=== PATIENT | female | born 1980 | race Caucasian/White ===

== ENCOUNTER 2022-07-05 21:13 | Inpatient (IN) | payer OTHER ==
[~2022-07-05] VITALS: Ht 170.2 cm; Wt 61.3 kg
[2022-07-06] VITALS (7 sets, daily range): BP systolic 108–151; BP diastolic 78–101
--- NOTE | 2022-07-06 01:29 | NUR ---
ADMISSION PATIENT ARRIVES TO PCU AROUND 0040. PATIENT SLID OVER BY PCU STAFF AND EMS. PATIENT ABLE TO ANSWER QUESTIONS BT IS SLOW TO RESPOND AND WILL FALL ASLEEP MID CONVERSATION. VITALS STABLE, PATIENT ON RA WITH O2 SAT >90%. PATIENT ABLE TO STAND PIVOT TO BEDSIDE COMMODE, VOIDED 500mls. DR. MC AT BEDSIDE FOR ADMISSION. BED IN LOW POSITION, CALL LIGHT IN REACH.
[2022-07-06 02:58] LABS: BASOPHILS ABSOLUTE AUTO 0.04 K/mm3 (0.00-0.23); BASOPHILS PERCENT AUTO 1 % (0-2); EOSINOPHILS ABSOLUTE AUTO 0.01 K/mm3 (0.00-0.68); EOSINOPHILS PERCENT AUTO 0 % (0-6); Hemoglobin 13.1 g/dL (11.5-16.0); IMMATURE GRAN ABSOLUTE AUTO 0.02 K/mm3 (0.00-0.10); IMMATURE GRAN PERCENT AUTO 0 % (0-1); LYMPHOCYTES ABSOLUTE AUTO 1.02 K/mm3 (0.84-5.20); LYMPHOCYTES PERCENT AUTO 15 % (21-46); MONOCYTES ABSOLUTE AUTO 0.65 K/mm3 (0.16-1.47); MONOCYTES PERCENT AUTO 9 % (4-13); Mean Corpuscular HGB 39.1 pg (26.0-34.0); Mean Corpuscular HGB Conc 35.4 g/dL (31.5-36.5); Mean Corpuscular Volume 110 fL (80-100); Mean Platelet Volume 10.9 fL (9.1-12.4); NEUTROPHILS ABSOLUTE AUTO 5.23 K/mm3 (1.96-9.15); NEUTROPHILS PERCENT AUTO 75 % (41-73); Platelet Count 111 K/mm3 (150-400); RDW Coefficient Variation 14.9 % (11.7-14.2); RDW Standard Deviation 61.2 fL (35.1-46.3); Red Blood Cell Count 3.35 M/mm3 (3.80-5.20); White Blood Cell Count 6.97 K/mm3 (4.00-11.30)
[2022-07-06 03:14] LABS: Albumin, Blood 3.3 g/dL (3.4-5.0); Albumin/Globulin Ratio 1.1 (0.8-1.8); Bilirubin, Total 2.2 mg/dL (0.1-1.0); Bun/Creatinine Ratio 16.7 (12.0-20.0); Calcium, Blood 7.4 mg/dL (8.5-10.1); Creatinine, Blood 0.3 mg/dL (0.40-1.00); Globulin, Blood 3.1 g/dL (2.2-4.0); Magnesium, Blood 1.5 mg/dL (1.6-2.4); Potassium, Blood 4.3 mmol/L (3.5-5.5); Total Protein, Blood 6.4 g/dL (6.4-8.2)
--- NOTE | 2022-07-06 06:38 | NUR ---
SHIFT SUMMARY PATIENT ALERT, ORIENTED x3-4, SLEPT FOR MAJORITY OF TIME SINCE ADMISSION. PATIENT WOULD WAKE UP FOR SHORT PERIODS OF TIME BUT EASILY FALLS BACK ASLEEP. VITALS STABLE, PATIENT ON RA WITH O2 SAT >90%. CIWA NEGATIVE THUS FAR. PATIENT TOLERATING ICE CHIPS. ONE PERSON ASSIST TO BEDSIDE COMMODE WITH ADEQUATE OUTPUT. POWERGLIDE PLACED. PROTONIX, SANDOSTATIN AND D5 1/2 NS INFUSING PER EMAR. NO OTHER CHANGES, WILL REPORT TO DAY SHIFT RN.
[2022-07-06 08:24] LABS: Hemoglobin 14.1 g/dL (11.5-16.0)
[2022-07-06 08:38] LABS: International Normalized Ratio 1.06; Prothrombin Time Results 11.1 Sec (9.7-11.5)
--- NOTE | 2022-07-06 11:09 | NUR ---
PT BROUGHT FROM FLOOR TO DAY SURGERY FOR PROCEDURE.
--- NOTE | 2022-07-06 11:17 | NUR ---
PT HAS 18G IV IN RIGHT AC THAT FLUSHES WELL AND FLOWS TO GRAVITY.
--- NOTE | 2022-07-06 11:20 | NUR ---
PT HAS POWERGLIDE TO LEFT UPPER ARM THAT FLUSHES WELL AND FLOWS TO GRAVITY.
--- NOTE | 2022-07-06 11:58 | NUR ---
07/06/[address] ALAMO; SEE ANESTHESIA RECORDS.
[2022-07-06 15:12] LABS: Hematocrit 39.6 % (33.0-51.0)
--- NOTE | 2022-07-06 18:10 | NUR ---
SHIFT SUMMARY: PT SLEEPS OFTEN, AROUSES EASILY TO STAFF IN ROOM, ORIENTED TO SELF, LOCATION, SITUATION, UNCERTAIN OF DATE. PT ADMITS TO DAILY ALCOHOL CONSUMPTION, STATES SHE HAS GONE THROUGH WITHDRAWAL BEFORE AND IS FAMILIAR W/SYMPTOMS. CONVERSATION HAD BETWEEN THIS RN AND PT TO REVIEW SYMPTOMS OF WITHDRAWAL AND PLAN OF TREATMENT IF CIWA SCORES REVEAL NEED FOR TREATMENT, NO TREATMENT FOR WITHDRAWAL THIS SHIFT. O2 SATS >93% ON RA. SR ON MONITOR, RATE 70s-80s. ABDOMEN TENDER TO TOUCH AND PAINFUL ACROSS UPPER ABDOMEN, PT MEDICATED PER EMAR. EGD COMPLETED THIS SHIFT, SEE PROVIDER NOTE FOR DETAILS. FULL LIQUID DIET STARTED, TO BE ADVANCED TOLERATED. NO EMESIS THIS SHIFT. NO BM THIS SHIFT. PT UP TO BSC W/ONE PERSON ASSIST AND FWW, TOLERATES WELL. AT THIS TIME, PT RESTING IN ROOM W/DINNER TRAY. WILL CONTINUE TO MONITOR AND TREAT ACCORDINGLY UNTIL CHANGE OF SHIFT.
[2022-07-06 21:50] LABS: Hematocrit 40.3 % (33.0-51.0); Hemoglobin 14.8 g/dL (11.5-16.0)
[2022-07-07 00:28] VITALS: BP 140/96
[2022-07-07 03:26] VITALS: BP 128/88
[2022-07-07 04:01] LABS: BASOPHILS ABSOLUTE AUTO 0.04 K/mm3 (0.00-0.23); BASOPHILS PERCENT AUTO 1 % (0-2); EOSINOPHILS ABSOLUTE AUTO 0.05 K/mm3 (0.00-0.68); EOSINOPHILS PERCENT AUTO 1 % (0-6); Hematocrit 41.1 % (33.0-51.0); Hemoglobin 15.3 g/dL (11.5-16.0); IMMATURE GRAN ABSOLUTE AUTO 0.01 K/mm3 (0.00-0.10); IMMATURE GRAN PERCENT AUTO 0 % (0-1); LYMPHOCYTES ABSOLUTE AUTO 0.96 K/mm3 (0.84-5.20); LYMPHOCYTES PERCENT AUTO 14 % (21-46); MONOCYTES ABSOLUTE AUTO 0.53 K/mm3 (0.16-1.47); MONOCYTES PERCENT AUTO 8 % (4-13); Mean Corpuscular HGB 38.9 pg (26.0-34.0); Mean Corpuscular HGB Conc 37.2 g/dL (31.5-36.5); Mean Platelet Volume 10.3 fL (9.1-12.4); NEUTROPHILS ABSOLUTE AUTO 5.17 K/mm3 (1.96-9.15); NEUTROPHILS PERCENT AUTO 77 % (41-73); Platelet Count 94 K/mm3 (150-400); RDW Coefficient Variation 13.7 % (11.7-14.2); RDW Standard Deviation 53.2 fL (35.1-46.3); Red Blood Cell Count 3.93 M/mm3 (3.80-5.20); White Blood Cell Count 6.76 K/mm3 (4.00-11.30)
[2022-07-07 04:05] LABS: Mean Corpuscular Volume 105 fL (80-100)
[2022-07-07 04:25] LABS: Magnesium, Blood 2.1 mg/dL (1.6-2.4)
[2022-07-07 04:37] LABS: Albumin, Blood 3.3 g/dL (3.4-5.0); Anion Gap 9 mmol/L (6-16); Blood Urea Nitrogen 2 mg/dL (8-24); Bun/Creatinine Ratio 6.5 (12.0-20.0); CO2, Blood 22 mmol/L (21-32); Calcium, Blood 8.2 mg/dL (8.5-10.1); Chloride, Blood 102 mmol/L (98-108); Creatinine, Blood 0.31 mg/dL (0.40-1.00); Glomerular Filtration Rate 133 (60-); Glucose, Blood 138 mg/dL (70-99); Phosphorus, Blood 0.4 mg/dL (2.5-4.9); Potassium, Blood 3.1 mmol/L (3.5-5.5); Sodium, Blood 133 mmol/L (136-145)
--- NOTE | 2022-07-07 06:29 | NUR ---
SHIFT SUMMARY PT A&Ox4, CALLS AND COMMUNICATES NEEDS APPROPRIATELY. CIWAs 16-18, MANANGED PER EMAR. BP STABLE, SINUS 80's. DENIES CP/PRESSURE. SPO2> 92% RA, DENIES SOB. PT CONTINENT OF URINE, 1 PER ASSIST TO BSC. NO BM THIS SHIFT. ASSISTED PT WITH BEDBATH, PROVIDED LINEN CHANGE. NO OTHER EVENTS, WILL REPORT TO ONCOMING RN.
[2022-07-07 07:47] VITALS: BP 122/90
[2022-07-07 11:18] VITALS: BP 117/81
[2022-07-07 15:57] VITALS: BP 113/86
--- NOTE | 2022-07-07 17:50 | NUR ---
REPORT RECIEVED AT BEDSIDE AND PATIENT GREETED. ASSESSMENT AND MEDICATIONS GIVEN. A CIWA WAS PREFORMED AND THE PATIENT SEEMED TO BE VERY LETHARGIC. PATIENT IS NORMALY ASLEEP DURING NORMAL HOURLY ROUNDING AND AWAKENS EASILY TO STIMULATION. THE PATIENT IS EATING A THIN LIQUID DIET WITH LITTLE COMPLICATION.
[2022-07-07 18:04] LABS: Albumin, Blood 3.1 g/dL (3.4-5.0); Anion Gap 6 mmol/L (6-16); Blood Urea Nitrogen 2 mg/dL (8-24); Bun/Creatinine Ratio 5.8 (12.0-20.0); CO2, Blood 25 mmol/L (21-32); Calcium, Blood 8.1 mg/dL (8.5-10.1); Chloride, Blood 103 mmol/L (98-108); Creatinine, Blood 0.35 mg/dL (0.40-1.00); Glomerular Filtration Rate 129 (60-); Glucose, Blood 127 mg/dL (70-99); Phosphorus, Blood 1.7 mg/dL (2.5-4.9); Potassium, Blood 2.8 mmol/L (3.5-5.5); Sodium, Blood 134 mmol/L (136-145)
--- NOTE | 2022-07-07 18:31 | NUR ---
UPDATE: PROVIDER NOTIFIED VIA TELEPHONE RE: PT LAB RESULTS. NEW ORDERS GIVEN VIA TELEPHONE AND PLACED.
[2022-07-07 20:14] VITALS: BP 111/79
[2022-07-08] VITALS (10 sets, daily range): BP systolic 92–115; BP diastolic 63–82
[2022-07-08 04:03] LABS: BASOPHILS ABSOLUTE AUTO 0.05 K/mm3 (0.00-0.23); BASOPHILS PERCENT AUTO 1 % (0-2); EOSINOPHILS ABSOLUTE AUTO 0.06 K/mm3 (0.00-0.68); EOSINOPHILS PERCENT AUTO 1 % (0-6); Hematocrit 36.8 % (33.0-51.0); Hemoglobin 13.7 g/dL (11.5-16.0); IMMATURE GRAN ABSOLUTE AUTO 0.02 K/mm3 (0.00-0.10); IMMATURE GRAN PERCENT AUTO 0 % (0-1); LYMPHOCYTES ABSOLUTE AUTO 1.45 K/mm3 (0.84-5.20); LYMPHOCYTES PERCENT AUTO 30 % (21-46); MONOCYTES ABSOLUTE AUTO 0.39 K/mm3 (0.16-1.47); MONOCYTES PERCENT AUTO 8 % (4-13); Mean Corpuscular HGB 38.9 pg (26.0-34.0); Mean Corpuscular HGB Conc 37.2 g/dL (31.5-36.5); Mean Corpuscular Volume 105 fL (80-100); NEUTROPHILS ABSOLUTE AUTO 2.92 K/mm3 (1.96-9.15); NEUTROPHILS PERCENT AUTO 60 % (41-73); Platelet Count 72 K/mm3 (150-400); RDW Coefficient Variation 14.3 % (11.7-14.2); RDW Standard Deviation 54.8 fL (35.1-46.3); Red Blood Cell Count 3.52 M/mm3 (3.80-5.20); White Blood Cell Count 4.89 K/mm3 (4.00-11.30)
[2022-07-08 04:21] LABS: Albumin, Blood 2.9 g/dL (3.4-5.0); Bilirubin, Total 1.5 mg/dL (0.1-1.0); Bun/Creatinine Ratio 12.2 (12.0-20.0); Creatinine, Blood 0.33 mg/dL (0.40-1.00); Magnesium, Blood 1.6 mg/dL (1.6-2.4); Phosphorus, Blood 1.6 mg/dL (2.5-4.9); Potassium, Blood 2.9 mmol/L (3.5-5.5); Total Protein, Blood 5.9 g/dL (6.4-8.2)
--- NOTE | 2022-07-08 05:52 | NUR ---
SHIFT SUMMARY PT A&Ox4, CALLS AND COMMUNICATES NEEDS APPROPRIATELY. CIWAs 11-17, MANANGED PER EMAR. BP STABLE, SINUS 80's. DENIES CP/PRESSURE. SPO2> 92% RA, DENIES SOB. PT CONTINENT OF URINE, 1 PER ASSIST TO BSC. NO BM THIS SHIFT. NOTIFIED PHYSICIAN OF MORNING LABS, ORDERS PLACED. NO OTHER EVENTS, WILL REPORT TO ONCOMING RN.
--- NOTE | 2022-07-08 10:13 | NUR ---
ASSUMED CARE: ASSUMED CARE OF PT APPROX 0715. PT LETHARGIC IN BED. ABLE TO COMMUNICATE NEEDS APPROPRIATELY. APPEARED ANXIOUS AND TEARFUL WITH ASSESSMENT. AM CIWA 25. MANAGED WITH ATIVAN AND LIBRIUM PER EMAR. BP STABLE. NSR 80's. SPO2 >92% ON RA. PT WITH 2P SBA TO BSC. ABLE TO VOID IN COMMODE. ABLE TO TAKE PO MEDICANTIONS PER EMAR WITH APPLESAUCE. NO FURTHER NEEDS AT THIS TIME. CALL LIGHT WITHIN REACH.
[2022-07-08 12:59] LABS: Anion Gap 3 mmol/L (6-16); Blood Urea Nitrogen 2 mg/dL (8-24); Bun/Creatinine Ratio 6.2 (12.0-20.0); CO2, Blood 28 mmol/L (21-32); Calcium, Blood 8.3 mg/dL (8.5-10.1); Chloride, Blood 104 mmol/L (98-108); Creatinine, Blood 0.32 mg/dL (0.40-1.00); Glomerular Filtration Rate 132 (60-); Glucose, Blood 94 mg/dL (70-99); Magnesium, Blood 2.9 mg/dL (1.6-2.4); Phosphorus, Blood 2.7 mg/dL (2.5-4.9); Potassium, Blood 3.5 mmol/L (3.5-5.5); Sodium, Blood 135 mmol/L (136-145)
--- NOTE | 2022-07-08 17:52 | NUR ---
SHIFT SUMMARY: PT A&OX3, UNSURE OF DATE/TIME. PT ABLE TO COMMUNICATE NEEDS APPROPRIATELY. CIWAS 9-25, MANAGED WITH ATIVAN AND LIBRIUM PER EMAR. SBP 90'S-100'S. HR 80'S-90'S, NSR. PT DENIES CP/PRESSURE. SPO2 >95% ON RA. PT DENIES SOB. PT REPORTS PAIN IN UPPER ABDOMEN BUT REPORTS IMPROVEMENT WITH CLEAR LIQUID DIET. PT 3P SBA TO COMMODE, TRANSITIONED TO BEDPAN DUE TO PT WEAKNESS. PT ABLE TO VOID YELLOW URINE. NO BM'S THIS SHIFT. POWERGLIDE IN LEFT UPPER ARM, SALINE LOCKED. REPOSITIONED FREQUENTLY WITH ASSISTANCE. SEIZURE PRECAUTIONS IN PLACE. CALL LIGHT WITHIN REACH. NO FURTHER NEEDS AT THIS TIME.
--- NOTE | 2022-07-08 20:27 | NUR ---
PATIENT AWAKE AND TEARFUL, SLIGHT TREMOR SEEN, CONTINUES TO C/O MARTINEZ SLIGHT RELIEF WITH TYLENOL GIVEN BY DAYSHIFT. SPEAKING IN WHISPER AND DIFFICULT TO UNDERSTAND AT TIMES. A&O BUT SLIGHT FORGETFUL. POOR COORDINATION AND GENERALIZED WEAKNESS. ATIVAN GIVEN FOR CIWA 18. LIBRIUM AT MAX DOSE FOR THE DAY.
[2022-07-09 04:05] LABS: Albumin, Blood 2.9 g/dL (3.4-5.0); Anion Gap 5 mmol/L (6-16); Blood Urea Nitrogen 4 mg/dL (8-24); Bun/Creatinine Ratio 13.2 (12.0-20.0); CO2, Blood 27 mmol/L (21-32); Calcium, Blood 8.3 mg/dL (8.5-10.1); Chloride, Blood 104 mmol/L (98-108); Glomerular Filtration Rate 134 (60-); Glucose, Blood 91 mg/dL (70-99); Magnesium, Blood 2.1 mg/dL (1.6-2.4); Phosphorus, Blood 2.5 mg/dL (2.5-4.9); Potassium, Blood 3.4 mmol/L (3.5-5.5); Sodium, Blood 136 mmol/L (136-145)
[2022-07-09 04:30] VITALS: BP 94/65
--- NOTE | 2022-07-09 06:23 | NUR ---
SUMMARY PATIENT SLEEPING OFF AND ON T/O NIGHT. WHEN AWAKE SHAKY AND SLIGHTLY FORGETFUL, NEEDING FREQUENT REMINDERS REGARDING PURWIK. MEDICATED WITH ATIVAN 1MG T/O NIGHT PER EMAR. LIBRIUM 25 MG PO GIVEN THIS MORNING. CIWA 5-18 T/O NIGHT.
[2022-07-09 07:27] VITALS: BP 102/74
--- NOTE | 2022-07-09 08:28 | NUR ---
AM NOTE Pt appears to be sleeping, wakes to verbal/tactile stimuli, quickly falling back asleep, not answering questions. Minimal tremors noted, minimaly diaphoretic, ciwa 5 this am. Spo2 >90% on ra, breathing even and unlabored. Tele sinus 80's. bp stable. Abd soft, tender to the llq. No s/sx of distress noted. Other vss. No other acute changes noted, will continue to monitor.
--- NOTE | 2022-07-09 14:00 | NUR ---
PT TRANSFERRED TO ROOM 351 FROM PCU IN BED. TEARFUL ON ARRIVAL. SETTLED IN TO ROOM AND ORIENTED TO CALL BUTTON.
[2022-07-09 15:35] VITALS: BP 108/71
--- NOTE | 2022-07-09 18:40 | NUR ---
SHIFT SUMMARY UP TO RECLINER FOR DINNER WITH 2 PERSON ASSISTU USING FWW. CIWA 6 AND STATED ANY HALLUCINATIONS SHE HAD EARLIER WERE GONE. STILL WITH TEARFUL MOMENTS.
[2022-07-10 07:12] VITALS: BP 104/67
--- NOTE | 2022-07-10 10:00 | NUR ---
PT YELLING AND CURSING WHILE IN BED WITH LOCKED RESTRAINTS ON. SPOKE WITH PT ABOUT HER WISHES AND SHE SAID SHE WANTED THE RESTRAINTS OFF AND TO GO HOME. ASKED ORIENTATION QUESTIONS AND PT ABLE TO SAY SHE WAS IN A HOSPITAL BUT NOT WHERE. WANTS TO GO HOME TO HER KIDS-PETS. REMINDED HER THAT HER BOYFRIEND IS STAYING WITH HER PETS AND KEEPING THEM TAKEN CARE OF. RESTRAINTS REMOVED AND PT IMMEDIATELY SAT ON SIDE OF BED SAYING SHE WAS GOING HOME AND SHE WOULD HITCH A RIDE. OFFERED SOMETHING FOR ANXIETY(WHICH SHE REPORTS SHE HAS) AND SHE REPLIED NOT IF SHE WAS LEAVING. CHANGED HER MIND AND TOOK A LIBRIUM. ASSISTED HER TO BATHROOM AND VERY UNSTEADY ON HER FEET USING A FWW WITH GAIT BELT. NEEDED CONSTAND CUING FOR SAFETY. MANAGED TO GET TO BATHROOM AND SAT ON TOILET. BRUSHED HER TEETH AND USED TOILET. MUCH CALMER AND REPORTED SHE FELT SCARED ABOUT TRYING TO WALK BY HERSELF AFTER ALMOST FALLING WHILE WALKING TO THE BATHROOM. NO FURTHER TALK ABOUT TRYING TO LEAVE AT THIS POINT.
[2022-07-10 16:16] VITALS: BP 118/75
--- NOTE | 2022-07-10 16:52 | NUR ---
SHIFT SUMMARY PT HAD BEEN CALM AND APPROPRIATE SINCE THIS MORNING. SLEPT FOR LENGTHY TIME LATE THIS MORNING INTO THIS AFTERNOON. CAN BE IMPULSIVE WHEN SHE WANTS TO GO TO BED AND DOESN'T CALL FOR HELP. CAMERA MONITERING PT FOR SAFETY AND CHAIR/BED ALARM ON WHEN IN EACH. FRIEND IN TO VISIT AND PT IN TEARS AFTER HE LEFT BUT SHE REPORTED IT WAS A GOOD VISIT. SPOKE WITH BROTHER, KEVIN, PHONE NUMBER [phone]. ATE SOME VANILLA PUDDING THIS AFTERNOON AND TOLERATED WELL. WILL ADVANCE TO A FULL LIQUID DIET AND MONITER TOLERATION. CAN BE TEARFUL AT TIMES.
[2022-07-10 20:47] VITALS: BP 100/66
[2022-07-11] VITALS (7 sets, daily range): BP systolic 101–115; BP diastolic 57–75
--- NOTE | 2022-07-11 05:39 | NUR ---
PT VERY WEAK AND UNABLE TO STAND OR REPOSITION IN BED ON OWN. 2 PERSON ASSIST FOR BSC. PT CONFUSED AT TIMES BUT STATES "I THINK IM DOING BETTER."
[2022-07-11 06:02] LABS: Bun/Creatinine Ratio 15.7 (12.0-20.0); Calcium, Blood 8.4 mg/dL (8.5-10.1); Creatinine, Blood 0.38 mg/dL (0.40-1.00); Potassium, Blood 3.9 mmol/L (3.5-5.5)
[2022-07-11 06:04] LABS: Hematocrit 36.2 % (33.0-51.0); Hemoglobin 13.5 g/dL (11.5-16.0); Mean Corpuscular HGB 39.4 pg (26.0-34.0); Mean Corpuscular HGB Conc 37.3 g/dL (31.5-36.5); Mean Corpuscular Volume 106 fL (80-100); Mean Platelet Volume 11.9 fL (9.1-12.4); Platelet Count 154 K/mm3 (150-400); RDW Coefficient Variation 14.2 % (11.7-14.2); RDW Standard Deviation 55.4 fL (35.1-46.3); Red Blood Cell Count 3.43 M/mm3 (3.80-5.20); White Blood Cell Count 6.43 K/mm3 (4.00-11.30)
[2022-07-11 07:04] LABS: BAND PERCENT MAN 14 % (0-8); BASOPHILS PERCENT MAN 0 % (0-2); EOSINOPHILS PERCENT MAN 0 % (0-6); LYMPHOCYTES ABSOLUTE MAN 0.38 K/mm3 (0.84-5.20); LYMPHOCYTES PERCENT MAN 6 % (21-46); MONOCYTES PERCENT MAN 14 % (4-13); NEUTROPHILS ABSOLUTE MAN 5.14 K/mm3 (1.96-9.15); SEG NEUTROPHILS PERCENT MAN 66 % (41-73); TOTAL CELLS COUNTED 100
--- NOTE | 2022-07-11 09:18 | NUR ---
CALL TO PATIENT TEMP OF 101.6 WITH AM VITALS, TYLENOL WAS GIVEN AT 0425, SO UNABLE TO GIVE MORE PER ORDERS. RECHECK AT THIS TIME IS 100.6. CALL TO DR RODRIGUEZ, STATED "I WILL BE UP THERE SHORTLY", NO NEW ORDERS GIVEN. PATIENT REMAINS VERY WEAK, ALERT & ORIENTED, SLOW TO RESPOND BUT APPROPRIATE WITH ANSWERS.
--- NOTE | 2022-07-11 10:05 | NUR ---
PATIENT VERY LETHARGIC AND FLACCID CURRENTLY. RESPIRATORY RATE APPEARED ELEVATED, UPON FURTHER VS ASSESSMENT, RESP RATE 34, TEMP REMAINS ELEVATED AT 100.5, BP 101/64, PULSE 101. DR ARREOLA VERBALLY NOTIFIED IN HALLWAY, STATED "I WILL GET TO HER SHORTLY, LET ME FINISH THIS UP", REGARDING ANOTHER PATIENT. THIS RN NOTIFIED IT APPLICATION SUPPORT ANALYSTDAVIDA WELSH REGARDING PATIENTS CONDITION. WILL CONTINUR TO MONITOR CLOSELY FOR FURTHER CHANGES.
--- NOTE | 2022-07-11 10:18 | NUR ---
AT BEDSIDE DR RODRIGUEZ AT BEDSIDE. STATES PATIENT "DEFINETLY HAS NEUROLOGICAL CHANGE SINCE YESTERDAY", ALSO STATED "I DONT THINK SHE IS SPETIC", PLANS TO ORDER SPINAL TAP FOR FURTHER R/O DIAGNOSIS. THIS RN WILL CONTINUE TO MONITOR CLOSELY AND NOTIFY FOR FURTHER CHANGES IN PATIENT STATUS.
--- NOTE | 2022-07-11 12:16 | NUR ---
RESPIRATIONS THIS RN RECHECKED RESPIRATIONS AFTER POSTAGE MACHINE OPERATOR DID FULL SET OF VITALS. RESPIRTAIONS ARE 36 AT THIS TIME - THIS RN BELIEVES RESP TO BE INACCURATELY RECORDED AT THIS TIME.
[2022-07-11 17:14] LABS: Appearance, CSF Clear (Clear); Color, CSF No Color (No Color); RBC Count, CSF 6 /mm3 (0-0); WBC Count, CSF 0 /mm3 (0-5)
[2022-07-11 18:08] LABS: Cryptococcus Neoformans/Gattii Not Detected (NOT DETECT); Enterovirus Not Detected (NOT DETECT); Escherichia Coli K1 Not Detected (NOT DETECT); Haemophilus Influenza Not Detected (NOT DETECT); Herpes Simplex Virus 1 Not Detected (NOT DETECT); Herpes Simplex Virus 2 Not Detected (NOT DETECT); Human Herpesvirus 6 Not Detected (NOT DETECT); Human Parechovirus Not Detected (NOT DETECT); Listeria Monocytogenes Not Detected (NOT DETECT); Neisseria Meningitidis Not Detected (NOT DETECT); Streptococcus Agalactiae Not Detected (NOT DETECT); Streptococcus Pneumoniae Not Detected (NOT DETECT); Varicella Zoster Virus Not Detected (NOT DETECT)
--- NOTE | 2022-07-11 18:50 | NUR ---
SHIFT SUMMARY PATIENT LETHARGIC AN FLACCID THIS AM, TESTING ORDERED BY PROVIDER PER CHART TO R/O MULTIPLE THINGS. PATIENT BECAME BETTER SHIFT WENT ON, MORE ALERT & RESPONSIVE, ANSWERING QUESTIONS APPROPRIATELY. TEMP REMAINS ELEVATE, TYLENOL ADMINISTERED. TOLERATING SOME FULL LIQUIDS. CONTINUOUS DIARRHEA T/O SHIFT. ATTENDS CHANGED PRN. IV ABX PER EMAR. BED IN LOW POSITION, REPORT GIVEN TO ONCOMING RN.
[2022-07-12 02:12] VITALS: BP 92/62
--- NOTE | 2022-07-12 06:21 | NUR ---
PT MORE AWAKE NIGHT PROGRESSED. CONTINUES TO BE VERY WEAK AND UNABLE TO GOT OOB FOR BSC, BEDPAN WHEN PT CALLS FOR BATHROOM. MULTIPLE WATERY STOOLS, NO BLOOD NOTED. TEARFUL AT TIMES.
[2022-07-12 06:59] VITALS: BP 89/56
[2022-07-12 13:52] LABS: Vancomycin, Trough 4.3 ug/mL (5.0-10.0)
[2022-07-12 15:07] VITALS: BP 102/63
--- NOTE | 2022-07-12 17:07 | NUR ---
SHIFT SUMMARY: PATIENT ALERT AND ORIENTED TO SELF AND PLACE ONLY. SLIGHTLY LETHARGIC AND SLOW TO RESPOND T/O SHIFT. DENIES CP/PRESSURE, SOB, N/V, AND GENERALIZED PAIN. PATIENT WORK c PT MOBILITY AND SITTING IN THE RECLINER FOR ABOUT 3 HRS THIS SHIFT. RECEIVED SCHEDULED MEDS PER EMAR. VITAL SIGNS REVIEWED. INCONTINENCE OF URINE AND STOOL. PATIENT HAD 3 LIQUID LARGE BROWN BM THIS SHIFT. POWER GLIDE TO MACEY INFUSING KVO. BED ALARM ON FOR SAFETY. CALL LIGHT IN REACH.
[2022-07-13] VITALS (8 sets, daily range): BP systolic 87–102; BP diastolic 56–67
--- NOTE | 2022-07-13 03:42 | NUR ---
SHIFT SUMMARY PT AOX2, ANSWER QUESTIONS BUT SOMETIMES TRAILS OFF INTO OTHER STORIES UNRELATED TO THE QUESTION. SHE CAN BE TEARFUL AT TIMES ESPECIALLY WHEN DISCUSSING HER PETS. SHE DID MENTION SHE WANTED TO LEAVE A COUPLE TIMES, STATING SHE WOULD GET IN HER SCOOTER AND ROLL OUT. SHE DID C/O PAIN, NAUSEA, AND ANXIETY. SHE WAS MEDICATED PER THE EMAR. SHE HAS BEEN UP IN THE CHAIR ALL NIGHT AND DID NOT WANT TO GET BACK INTO HER BED. STAFF ATTEMPTED TO ASK AND REASSURED PT TO LET STAFF KNOW IF SHE DID. PT HAS BEEN DRINKING FLUIDS T/O THE NIGHT. PT USES HER CALL LIGHT WELL AND IS MAKING HER NEEDS KNOWN. BED IN THE LOWEST POSITION, CALL LIGHT WITHIN REACH. WILL REPORT TO ONCOMING NURSE.
--- NOTE | 2022-07-13 16:21 | NUR ---
SHIFT SUMMARY: PATIENT ALERT AND ORIENTED TO SELF AND PLACED ONLY. CONFUSED, SLOW TO RESPOND AND CONTINUES TO BE LETHARGIC THIS SHIFT. AMMONIA LEVEL OF 72, STARTED ON LACTULOSE TODAY AND SCHEDULED TID. PATIENT REPORTS PAIN 7-8/10 TO NECK AND ABDOMEN. PAIN TREATED c OXYCODONE c GOOD RELIEF. PATIENT HAD EPISODE OF NAUSEA BUT NO VOMITING, MEDICATED X1 c ZOFRAN c ADEQUATE RELIEF. PATIENT CONTINUES TO HAVE POOR APPETITE. PATIENT SLEPT ON AND OFF IN THE RECLINER CHAIR T/O SHIFT. CONTINENCE/INCONTINENCE OF URINE AND STOOL. MARISA CARE AND ATTENDS CHANGED T/O SHIFT. PATIENT IS VERY WEAK c 2 MAX ASSIST TO STAND & PIVOT TO BSC & BACK TO CHAIR. RECEIVED SCHEDULED MEDS PER EMAR. VITAL SIGNS REVIEWED. CHAIR ALARM ON FOR SAFETY. CALL LIGHT IN REACH.
--- NOTE | 2022-07-14 04:22 | NUR ---
SHIFT SUMMARY PT AOX2, LETHARGIC T/O THE SHIFT. UNABLE TO GIVE PM MEDS DUE TO ASPIRATION PRECAUTIONS, SHE WAS AROUSABLE BUT TOO LETHARGIC. PT HAD A SMALL BOUT OF N/V AND MEDICATED PER THE EMAR. PT ALSO BECAME ANXIOUS AND WAS MEDICATED PER THE EMAR. SHE HAS ALSO BEEN UP TO THE BATHROOM OFTEN TO HAVE A BM THE SHIFT PROGRESSED, USING THE BSC. SHE IS A 2 PERSON MAX ASSIST DUE TO SEVERE WEAKNESS AND LETHARGY. PT REPOSITIONED T/O THE SHIFT, REFUSING TO GET BACK INTO BED. SHE SAID IT IS MORE COMFORTABLE IN THE CHAIR THAN IN BED. CALL LIGHT IS WITHIN REACH. WILL REPORT TO ONCOMING NURSE.
[2022-07-14 05:54] VITALS: BP 90/65
[2022-07-14 06:16] LABS: Hematocrit 32.7 % (33.0-51.0); Hemoglobin 12.1 g/dL (11.5-16.0); LYMPHOCYTES ABSOLUTE AUTO 0.99 K/mm3 (0.84-5.20); LYMPHOCYTES PERCENT AUTO 7 % (21-46); MONOCYTES ABSOLUTE AUTO 1.62 K/mm3 (0.16-1.47); MONOCYTES PERCENT AUTO 12 % (4-13); Mean Corpuscular HGB 39.3 pg (26.0-34.0); Mean Corpuscular Volume 106 fL (80-100); Mean Platelet Volume 10.5 fL (9.1-12.4); Platelet Count 393 K/mm3 (150-400); RDW Coefficient Variation 14.5 % (11.7-14.2); RDW Standard Deviation 56.5 fL (35.1-46.3); Red Blood Cell Count 3.08 M/mm3 (3.80-5.20); White Blood Cell Count 13.38 K/mm3 (4.00-11.30)
[2022-07-14 06:21] LABS: BASOPHILS ABSOLUTE AUTO 0.02 K/mm3 (0.00-0.23); BASOPHILS PERCENT AUTO 0 % (0-2); EOSINOPHILS ABSOLUTE AUTO 0.09 K/mm3 (0.00-0.68); EOSINOPHILS PERCENT AUTO 1 % (0-6); IMMATURE GRAN ABSOLUTE AUTO 0.12 K/mm3 (0.00-0.10); IMMATURE GRAN PERCENT AUTO 1 % (0-1); NEUTROPHILS ABSOLUTE AUTO 10.54 K/mm3 (1.96-9.15); NEUTROPHILS PERCENT AUTO 79 % (41-73)
[2022-07-14 06:52] LABS: Albumin, Blood 2.3 g/dL (3.4-5.0); Albumin/Globulin Ratio 0.6 (0.8-1.8); Bun/Creatinine Ratio 32.6 (12.0-20.0); Calcium, Blood 7.8 mg/dL (8.5-10.1); Creatinine, Blood 0.86 mg/dL (0.40-1.00); Globulin, Blood 3.6 g/dL (2.2-4.0); Potassium, Blood 2.5 mmol/L (3.5-5.5); Thyroid Stimulating Hormone 1.2 uIU/mL (0.360-4.800); Total Protein, Blood 5.9 g/dL (6.4-8.2)
[2022-07-14 07:01] VITALS: BP 101/64
--- NOTE | 2022-07-14 16:29 | NUR ---
SUMMARY/DC- PT WAS COMBATIVE, CURSING, WANTING TO LEAVE STARTING MID-MORNING FOR THE REST OF THE SHIFT UNTIL PT LEFT AMA. RN, DR. FANG, AND CHARGE NURSE RABIA ALL SPENT WELL OVER AN HOUR EDUCATING PT ON THE RISKS OF LEAVING AMA VS BENEFITS OF STAYING. THIS EDUCATION WAS ALSO PROVIDED EXTENSIVELY TO THE PT'S "BOYFIREND AND BROTHER." PT REFUSED TO STAY ALTHOUGH IT WAS AMA. AMA PAPERWORK SIGNED AND DISCUSSED. BOYFRIEND-JIM EXCORTED PT DOWN TO LEAVE AMA. PT STATED SHE WANTED TO LEAVE AND WAS TIRED OF BEING IN THE HOSPITAL. THIS RN ASKED THE PT WHILE BF STEPPED OUTSIDE THE ROOM IF SHE FELT SAFE AT HOME AND WANTED TO GO WITH BF AND BROTHER, KEVIN. PT SAID, "I FEEL SAFE AND THEY WILL TAKE GOOD CARE OF ME."
== END 2022-07-14 13:45 | disposition left against medical advice (07) | DRG 438 ==
LOC: MEDS 21:13 → PCU 21:13 → MEDS 21:13 → PCU 07-06 00:45 → MEDS 07-09 14:13
PROVIDERS: Family Medicine; Internal Medicine; Internal Medicine Gastroenterology; ADMIT Internal Medicine
PROC: HZ2ZZZZ Detoxification Services for Substance Abuse Treatment (ICD-10-PCS; principal; 2022-07-05)
PROC: 0W3P8ZZ Control Bleeding in Gastrointestinal Tract, Via Natural or Artificial Opening Endoscopic (ICD-10-PCS; 2022-07-06 11:00)
PROC: 009U3ZX Drainage of Spinal Canal, Percutaneous Approach, Diagnostic (ICD-10-PCS; 2022-07-11)
PROC: B01BZZZ Fluoroscopy of Spinal Cord (ICD-10-PCS; 2022-07-11)
DX: K85.20 Alcohol induced acute pancreatitis without necrosis or infection (principal); G92.8 Other toxic encephalopathy; E87.1 Hypo-osmolality and hyponatremia; K92.0 Hematemesis; F10.239 Alcohol dependence with withdrawal, unspecified; E51.2 Wernicke's encephalopathy; G35 Multiple sclerosis; F41.9 Anxiety disorder, unspecified; F43.10 Post-traumatic stress disorder, unspecified; F17.210 Nicotine dependence, cigarettes, uncomplicated; K44.9 Diaphragmatic hernia without obstruction or gangrene; K70.11 Alcoholic hepatitis with ascites; E87.6 Hypokalemia; Z53.29 Procedure and treatment not carried out because of patient's decision for other reasons; E83.39 Other disorders of phosphorus metabolism; K76.82 Hepatic encephalopathy; R51.9 Headache, unspecified; M54.2 Cervicalgia; E83.42 Hypomagnesemia; Z98.890 Other specified postprocedural states; Z88.0 Allergy status to penicillin; Z88.8 Allergy status to other drugs, medicaments and biological substances
CPT/HCPCS: 36415; 70450; 76705; 77003; 80048; 80053; 80069; 80202; 82140; 83735; 84100; 84157; 84443; 85014; 85018; 85025; 85610; 87070; 87205; 87483; 89051; 97110; 97112; 97116; 97161; 97166; 97530; A9270; C1751; C9113; J0133; J0696; J2001; J2060; J2185; J2250; J2354; J2405; J2704; J3010; J3370; J3411; J3475; J3480; J7040; J7042; J7050; J7060; J7120